=== PATIENT | female | born 1980 | race American Indian/Alaskan Native ===

== ENCOUNTER 2021-03-27 10:35 | Outpatient (CLI) | payer OTHER ==
--- NOTE | 2021-03-27 13:53 | Fluoroscopy Report ---
UPPER GI HISTORY: K30 Z98.84. Evaluation for gastric bypass surgery. TECHNIQUE: Single and double contrast barium technique utilized to evaluate the esophagus, stomach, and duodenal C-loop. FINDINGS: To begin the exam, swallowing was evaluated in the lateral position under direct fluorosco py. Swallowing was normal. No mucosal irregularity, mass, mass effect, or critical stenosis. There were no abnormal tertiary c ontractions as seen with dysmotility. No hiatal hernia or gastroesophageal reflux was witnessed. Dimitri sundeep sleeve surgical changes are identified which appear unremarkable. IMPRESSION: Unremarkable exam. Gastric sleeve surgical changes. Fluoroscopic time: 1.4 minutes Number of fluoroscopic images: 25 Signer Name: Brigido Cope Jr, MD Signed: 03/27/2021 1:49 PM Workstation Name: [id number]
--- NOTE | 2021-03-30 14:07 | Electrocardiograph Report ---
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
== END 2021-03-27 10:36 | disposition home or self-care (01) ==
LOC: FLUORO 10:35
PROVIDERS: ATTEND Surgery
DX: K30 Functional dyspepsia (principal); Z98.84 Bariatric surgery status
CPT/HCPCS: 74246; 93005

== ENCOUNTER 2021-04-14 06:34 | Day surgery (SDC) | payer OTHER ==
[2021-04-14] MEDS ORDERED: SODIUM CHLORIDE 0.9% 1000 ML 1,000 ML IV SCH (07:00)
--- NOTE | 2021-04-14 07:47 | Anesthesia Consultation ---
Anesthesia Consult and Med Hx Date of service: 04/14/21 - Airway Anesthetic Teeth Evaluation: Good ROM Head & Neck: Adequate Mental/Hyoid Distance: Adequate Mallampati Class: Class III Intubation Access Assessment: Possibly Difficult - Pre-Operative Health Status ASA Pre-Surgery Classification: ASA3 Proposed Anesthetic Plan: MAC - Pulmonary Hx Smoking: Yes (quitting) Hx Sleep Apnea: Yes (uses CPAP sometimes) - Gastrointestinal Hx Gastroesophageal Reflux Disease: Yes - Other Systems Hx Obesity: Yes (BMI 41.4, s/p gastric sleeve (2015))
--- NOTE | 2021-04-14 07:47 | Anesthesia Day of Surgery ---
Anesthesia Day of Surgery - Day of Surgery Patient Examined: Yes Patient H&P Reviewed: Yes Patient is NPO: Yes
[2021-04-14] MEDS ORDERED: propofoL 200 MG/20 ML VIAL IV ONE (09:04)
--- NOTE | 2021-04-14 09:25 | Discharge Summary ---
Providers - Providers Date of Admission: 04/14/2021 Date of discharge: 04/14/21 Attending physician: GISELA BOB MD Primary care physician: KVNG GALAVIZ Hospitalization Reason for admission: pre-op planning bariatric surgery Condition: Good Procedures: egd with bx Hospital course: Pt presented for a pre-op EGD as part of planning for up coming bariatric surgery. Procedure was uneventful and pt recovered well and was discharged to home. Disposition: 01 HOME / SELF CARE / HOMELESS Final Discharge Diagnosis (Prints w/discharge instructions): hx of bariatric surgery, gerd Core Measure Documentation - Palliative Care Palliative Care/ Comfort Measures: Not Applicable - Core Measures Any of the following diagnoses?: none Exam - Physical Exam Narrative exam: unchanged from pre-op Plan Activity: advance as tolerated Diet: low carbohydrate Follow up with: KVNG GALAVIZ [Primary Care Provider] - 7 Days
--- NOTE | 2021-04-14 09:28 | Operative Report ---
Operative Report Operative Report: DATE: 04/14/2021 SURGERY: Upper endoscopy. SURGEON: Hang Boyle M.D. PROCEDURE: EGD with biopsy PRE OP DX: hx of bariatric surgery, GERD POST OP DX: hx of bariatric surgery, GERD, hiatal hernia TYPE OF ANESTHESIA: MAC. ESTIMATED BLOOD LOSS: None. COMPLICATIONS: None. SPECIMENS REMOVED: antral biopsy FINDINGS: 1. Small hiatal hernia. 2. appropriately sleeved stomach, antral gastritis INDICATIONS:INDICATION FOR PROCEDURE: Patient is a 41-year-old female with a history of sleeve gastrectomy for morbid obesity several years ago. She has had worsening gastroesophageal reflux despite being on medication. She is here today for EGD looking for any pathology that may be a contraindication for conversion to gastric bypass. PROCEDURE DETAILS: After consent was reviewed, patient was taken back to the operating room where patient was placed in the left lateral decubitus position and a bite block was placed in the mouth. After a time-out was called, MAC anesthesia was initiated. I then passed the endoscope into her oropharynx, into her esophagus, visualized the entire esophagus, which was all within normal limits. Z-line was noted to about 38cm from incisors. I then visualized the stomach which was appropriately narrowed due to her previous procedure without any signs of kink or obstruction. The first portion of the duodenum and there were also examined and there were no abnormalities I could clearly visualize except for antral gastritis. A cold forceps biopsy of the antrum was taken and will be sent to pathology to evaluate for H.pylori. I then retroflexed the scope in the stomach and visualized the hiatus and I could see a small hiatal hernia. I then desufflated the stomach and removed the endoscope. Patient tolerated procedure well and was transferred to recovery room in good and stable condition.
[2021-04-14 10:07] VITALS: BP 142/93
--- NOTE | 2021-04-14 17:43 | Post Anesthesia Evaluation ---
- Post Anesthesia Evaluation Patient Participated: Yes Airway Patent: Yes Stable Respiratory Function: Yes Nausea/Vomiting: No Temp > 96.8F: Yes Pain Manageable: Yes Adequeate Hydration: Yes Anesthesia Complications: No Block Receding Appropriately: Not Applicable Patient on Ventilator: No
== END 2021-04-14 10:30 | disposition home or self-care (01) ==
LOC: GIO 06:34
PROVIDERS: ATTEND Surgery
DX: K21.9 Gastro-esophageal reflux disease without esophagitis (principal); K30 Functional dyspepsia; K44.9 Diaphragmatic hernia without obstruction or gangrene; K31.89 Other diseases of stomach and duodenum; K29.50 Unspecified chronic gastritis without bleeding; E66.9 Obesity, unspecified; G47.30 Sleep apnea, unspecified; F17.210 Nicotine dependence, cigarettes, uncomplicated; Z68.41 Body mass index [BMI] 40.0-44.9, adult; Z79.899 Other long term (current) drug therapy
CPT/HCPCS: 43239; 88305; 88342; J2704; J7030

== ENCOUNTER 2021-05-04 09:43 | Outpatient (CLI) | payer OTHER ==
--- NOTE | 2021-05-05 02:02 | Treadmill Report ---
DATE OF SERVICE: 05/04/2021 TREADMILL STRESS TEST ORDERING PHYSICIAN: Dr. Boyle. INDICATION: Preop for bariatric surgery being read by Dr. Monaco on 05/04/2021. CLINICAL INFORMATION: This is a 41-year-old female, who did a treadmill stress test. Baseline heart rate was 66. Baseline blood pressure 130/83. Baseline EKG, sinus rhythm with no ST abnormalities. The patient exercised on Erick protocol for 9 minutes. Resting max blood pressure 160/94. Max heart rate was 165 with 100% max predicted heart rate, had no EKG changes suggestive of ischemia or arrhythmias suggestive of ischemia. SUMMARY: 1. Negative treadmill EKG. 2. Good exercise capacity on 9 minutes of Erick protocol. 3. No exaggerated blood pressure response to exercise. 4. No EKG changes or arrhythmias suggestive of ischemia. Peak blood pressure is 186/101. TID: [id number] RECEIPT: [id number] DERRICK/SOILA/GUERRERO
--- NOTE | 2021-05-14 11:51 | Treadmill Report ---
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
== END 2021-05-04 09:44 | disposition home or self-care (01) ==
LOC: CARD 09:43
PROVIDERS: ATTEND Surgery
DX: E66.01 Morbid (severe) obesity due to excess calories (principal)
CPT/HCPCS: 93017